=== PATIENT | female | born 2000 | race Caucasian/White ===

== ENCOUNTER 2022-11-09 11:30 | Emergency (ER) | payer OTHER ==
[~2022-11-09] VITALS: Ht 157.5 cm; Wt 61.2 kg
[2022-11-09 11:30] VITALS: BP_SYST 100
--- NOTE | 2022-11-09 11:30 | NUR ---
BROUGHT BACK TO BED #8 AND TRIAGED, REPORT GIVEN TO Leilani
--- NOTE | 2022-11-09 11:41 | NUR ---
MD PERALTA AT BEDSIDE ASSESSING PT.
--- NOTE | 2022-11-09 11:41 | NUR ---
ASSUMED CARE OF A&OX 4 PT WITH CLEAR SPEECH AND PATENT AIRWAY PRESENTED TO THE ED WITH C/O SEVERE LOW BACK TIGHTNESS WITH ACHINESS SINCE YESTERDAY. PT REPORTS PAIN HAS GOTTEN PROGRESSIVELY WORSE SINCE LAST NIGHT. PT REPORTED THAT SHE DID WORK OUT LAST NIGHT BUT DOESN'T BELIEVES IT CAUSE THE PAIN. PT REPORTS UNKNOWN MECHANISM OF ACTION. PT DENIES N/T TO EXTREMITIES AND SHE HAS FULL ROM. NO DEFORMITY OR SWELLING NOTED.
[2022-11-09] MEDS ORDERED: KETOROLAC TROMETHAMINE 60 MG/2 ML VIAL IM ONE (11:45)
--- NOTE | 2022-11-09 12:12 | NUR ---
PT TRANSPORTED TO CT [facility]IA [facility] BY [facility]. WILL CONTINUE TO MONITOR UPON ARRIVAL BACK TO ED.
[2022-11-09 12:18] LABS: BASOPHILS # (AUTO) 0.1 K/uL (0.0-0.2); EOSINOPHILS # (AUTO) 0.1 K/uL (0.0-0.4); EOSINOPHILS % (AUTO) 1.9 % (0.0-4.0); HEMATOCRIT 36.4 % (36-48); HEMOGLOBIN 12.1 g/dL (12.0-16.0); LYMPHOCYTES # (AUTO) 1.8 K/uL (1.0-5.5); LYMPHOCYTES % (AUTO) 34.3 % (20.5-51.5); MEAN CORPUSCULAR HEMOGLOBIN 29 pg (27-31); MEAN CORPUSCULAR HGB CONC 33 % (32-36); MEAN CORPUSCULAR VOLUME 87 fL (79.0-98.0); MONOCYTES # (AUTO) 0.6 K/uL (0.0-1.0); MONOCYTES % (AUTO) 10.9 % (1.7-9.3); NEUTROPHILS # (AUTO) 2.7 K/uL (1.8-7.7); NEUTROPHILS % (AUTO) 51.9 % (40.0-70.0); PLATELET COUNT (AUTO) 219 K/uL (130-430); RED BLOOD CELL COUNT(AUTO) 4.21 MIL/uL (4.2-6.2); RED CELL DISTRIBUTION WIDTH 13.9 % (9.0-15.0); WHITE BLOOD COUNT (AUTO) 5.2 K/uL (4.8-10.8)
[2022-11-09 12:20] LABS: ANION GAP 8 (5-15); CALCIUM 8.7 mg/dL (8.4-11.0); CHLORIDE 103 mmol/L (98-107); CREATININE 0.82 mg/dL (0.55-1.30); GFR AFRICAN AMERICAN 113 mL/min (>90); GLUCOSE 91 mg/dL (70-99); UREA NITROGEN, BLOOD 15 mg/dL (8-21)
[2022-11-09 12:23] LABS: ACETONE, SERUM NEGATIVE (NEGATIVE)
[2022-11-09 12:24] LABS: ALANINE AMINOTRANSFERASE 23 U/L (12-78); ALBUMIN 3.7 g/dL (3.4-4.8); AMYLASE 56 U/L (0-100); ASPARTATE AMINOTRANSFERASE 15 U/L (10-37); LIPASE 113 U/L (73-393); TOTAL BILIRUBIN 0.8 mg/dL (0.0-1.0)
[2022-11-09 12:25] LABS: C-REACTIVE PROTEIN QUANT < 0.2 mg/dL (0-0.5)
--- NOTE | 2022-11-09 12:25 | NUR ---
PT BACK FROM RADIOLOGY IN STABLE CONDITION WITHOUT S/S OF DISTRESS.
[2022-11-09] MEDS ORDERED: IBUP-1969 PO (13:28)
[2022-11-09] MEDS ORDERED: HYDR-3917 PO (13:28)
[2022-11-09 13:29] LABS: BILIRUBIN,URINE NEGATIVE (NEGATIVE); BLOOD, URINE 2+ (NEGATIVE); CLARITY/URINE CLEAR (CLEAR); COLOR,URINE YELLOW (YELLOW); GLUCOSE,URINE NEGATIVE (NEGATIVE); KETONES,URINE NEGATIVE (NEGATIVE); LEUKOCYTE ESTERASE ,URINE NEGATIVE (NEGATIVE); NITRITE, URINE NEGATIVE (NEGATIVE); PROTEIN URINE NEGATIVE (NEGATIVE); UROBILINOGEN,URINE 0.2 (0.2-1.0)
[2022-11-09 13:42] VITALS: BP_SYST 105
--- NOTE | 2022-11-09 13:42 | NUR ---
Patient given written and verbal discharge instructions and verbalizes understanding. ER MD discussed with patient the results and treatment provided. Patient in stable condition. ID arm band removed. Rx of given. Patient educated on pain management and to follow up with PMD. Pain Scale NUMERIC ASSESSED AND PT HAS ZERO PAIN AT THIS TIME. Opportunity for questions provided and answered. Medication side effect fact sheet provided. PT DC'D A&OX 4 WITH CLEAR SPEECH, PATENT AIRWAY AND STEADY GAIT.
[2022-11-09 14:07] LABS: BACTERIA,URINE RARE /HPF (None Seen); WBC,URINE 0-3 /HPF (0-3)
== END 2022-11-09 13:42 | disposition home or self-care (01) ==
LOC: SED 11:30
DX: K52.9 Noninfective gastroenteritis and colitis, unspecified (principal); M54.50 Low back pain, unspecified; Z88.0 Allergy status to penicillin; Z79.899 Other long term (current) drug therapy
CPT/HCPCS: 99285; 74176; 80053; 81000; 82009; 82150; 84703; 83690; 85025; 86140; 36415; 76376; 81025; 96372; 83605; J1885

== ENCOUNTER 2022-11-15 11:53 | Outpatient (CLI) | payer OTHER ==
[~2022-11-15 11:53] MED LIST: HYDR-3917 PO; IBUP-1969 PO
[2022-11-15 13:02] LABS: BASOPHILS % (AUTO) 0.7 % (0.0-2.0); EOSINOPHILS # (AUTO) 0.1 K/uL (0.0-0.4); EOSINOPHILS % (AUTO) 1.5 % (0.0-4.0); HEMATOCRIT 40.7 % (36-48); HEMOGLOBIN 13.5 g/dL (12.0-16.0); LYMPHOCYTES # (AUTO) 2.5 K/uL (1.0-5.5); LYMPHOCYTES % (AUTO) 38.4 % (20.5-51.5); MEAN CORPUSCULAR HEMOGLOBIN 29 pg (27-31); MEAN CORPUSCULAR HGB CONC 33 % (32-36); MEAN CORPUSCULAR VOLUME 86 fL (79.0-98.0); MONOCYTES # (AUTO) 0.5 K/uL (0.0-1.0); MONOCYTES % (AUTO) 7.5 % (1.7-9.3); NEUTROPHILS # (AUTO) 3.4 K/uL (1.8-7.7); NEUTROPHILS % (AUTO) 51.9 % (40.0-70.0); PLATELET COUNT (AUTO) 271 K/uL (130-430); RED BLOOD CELL COUNT(AUTO) 4.72 MIL/uL (4.2-6.2); RED CELL DISTRIBUTION WIDTH 13.5 % (9.0-15.0); WHITE BLOOD COUNT (AUTO) 6.6 K/uL (4.8-10.8)
[2022-11-15 13:22] LABS: ALBUMIN 4.6 g/dL (3.4-4.8); CALCIUM 9.4 mg/dL (8.4-11.0); CREATININE 0.77 mg/dL (0.55-1.30); FREE T4 (FREE THYROXINE) 1.1 ng/dL (0.6-1.6); THYROID STIMULATING HORMONE 2.71 uIu/mL (0.34-4.82); TOTAL BILIRUBIN 0.4 mg/dL (0.0-1.0)
[2022-11-16 07:07] LABS: RA LATEX TURBID <10.0 IU/mL (<14.0)
[2022-11-16 11:06] LABS: HEPATITIS A AB, IgM Negative (Negative); HEPATITIS B CORE AB, IgM Negative (Negative); HEPATITIS B SURFACE AG Negative (Negative)
== END 2022-11-15 19:49 | disposition home or self-care (01) ==
LOC: SLB 11:53
DX: Z11.3 Encounter for screening for infections with a predominantly sexual mode of transmission (principal); N28.9 Disorder of kidney and ureter, unspecified; R53.82 Chronic fatigue, unspecified; K52.9 Noninfective gastroenteritis and colitis, unspecified; K57.90 Diverticulosis of intestine, part unspecified, without perforation or abscess without bleeding; M54.50 Low back pain, unspecified; G89.29 Other chronic pain; M51.36 Other intervertebral disc degeneration, lumbar region; Z80.3 Family history of malignant neoplasm of breast
CPT/HCPCS: 36415; 76770; 80053; 80074; 84439; 84443; 85025; 86431; 86592; 87491

== ENCOUNTER 2023-02-17 11:47 | Emergency (ER) | payer OTHER ==
[~2023-02-17] VITALS: Ht 157.5 cm; Wt 59.0 kg
[2023-02-17 11:55] VITALS: BP_SYST 110
[2023-02-17] MEDS ORDERED: OXYCODONE/ACETAMINOPHEN 5-325 TABLET PO ONE (12:15)
[2023-02-17] MEDS ORDERED: IBUP-1969 PO (14:19)
[2023-02-17 14:59] VITALS: BP_SYST 110
== END 2023-02-17 15:05 | disposition home or self-care (01) ==
LOC: SED 11:47
DX: S02.2XXA Fracture of nasal bones, initial encounter for closed fracture (principal); S00.12XA Contusion of left eyelid and periocular area, initial encounter; S09.90XA Unspecified injury of head, initial encounter; J34.2 Deviated nasal septum; Z79.899 Other long term (current) drug therapy; Y04.0XXA Assault by unarmed brawl or fight, initial encounter; Y93.89 Activity, other specified; Y92.89 Other specified places as the place of occurrence of the external cause; Y99.8 Other external cause status
CPT/HCPCS: 70486-TC; 76376; 99284

== ENCOUNTER 2023-02-19 16:56 | Emergency (ER) | payer OTHER ==
[~2023-02-19] VITALS: Ht 157.5 cm; Wt 65.8 kg
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
[2023-02-19 17:21] VITALS: BP_SYST 121
--- NOTE | 2023-02-19 17:28 | NUR ---
Patient to ER HALLWAY 2 to [facility] for evaluation. Side rails up. Report given to KASSY HOLLAND.
[2023-02-19 19:00] VITALS: BP_SYST 126
[2023-02-19] MEDS ORDERED: KETOROLAC TROMETHAMINE 60 MG/2 ML VIAL IM ONE ×2 (19:00→19:03)
--- NOTE | 2023-02-19 19:00 | NUR ---
Patient given written and verbal discharge instructions and verbalizes understanding. ER MD discussed with patient the results and treatment provided. Patient in stable condition. ID arm band removed. IV catheter removed intact and dressing applied, no active bleeding. Rx of IBUPROFEN, NORCO given. Patient educated on pain management and to follow up with PMD. Pain Scale 4/10. Opportunity for questions provided and answered. Medication side effect fact sheet provided.
== END 2023-02-19 19:00 | disposition home or self-care (01) ==
LOC: SED 16:56
DX: S02.2XXA Fracture of nasal bones, initial encounter for closed fracture (principal); Z88.0 Allergy status to penicillin; Z79.899 Other long term (current) drug therapy; Y04.0XXA Assault by unarmed brawl or fight, initial encounter; Y93.89 Activity, other specified; Y92.89 Other specified places as the place of occurrence of the external cause; Y99.8 Other external cause status
CPT/HCPCS: 99283; 96372; J1885